=== PATIENT | male | born 1975 | race Caucasian/White ===

== ENCOUNTER 2021-11-22 18:50 | Emergency (ER) | payer OTHER ==
[~2021-11-22] VITALS: Ht 175.3 cm; Wt 90.7 kg
[~2021-11-22 18:50] MED LIST: PAIN MEDS
--- NOTE | 2021-11-22 19:50 | NUR ---
PT AMBULATED TO BED #1
[2021-11-22 19:53] VITALS: BP 144/63
--- NOTE | 2021-11-22 20:01 | NUR ---
46 YO M BIB SELF WITH C/C OF 8/10 LOWER ABD PAIN X4DAYS. PT STATES PAIN HAS INCREASED IN THE PAST FEW DAYS CAUSING BILAT HIPS TO HURT. REPORTS CONSTIPATION. DENIES N/V. STATES HE TOOK A LAXATIVE THIS AM WITH NO RELIEF. HX;HTN RX:NONCOMPLIANT NKA
[2021-11-22] MEDS: MAGNESIUM CITRATE 300 ML BTL PO ONE (21:35)
[2021-11-22 21:45] VITALS: BP 144/63
--- NOTE | 2021-11-22 21:45 | NUR ---
Patient discharged with v/s stable. Written and verbal after care instructions given and explained. Patient verbalized understanding. Ambulatory with steady gait. All questions addressed prior to discharge. Advised to follow up with PMD.
== END 2021-11-22 21:45 | disposition home or self-care (01) ==
LOC: MED 18:50
DX: R10.30 Lower abdominal pain, unspecified (principal)
CPT/HCPCS: 74018; 81002; 99283

== ENCOUNTER 2022-09-16 12:46 | Emergency (ER) | payer OTHER ==
[~2022-09-16] VITALS: Ht 172.7 cm; Wt 90.7 kg
[2022-09-16 12:49] VITALS: BP 138/85; PULSE 74; RESP 20; TEMP 98; O2SAT 100
[2022-09-16] MEDS ORDERED: LIDOCAINE 1% 500 MG/ 50 ML VIAL INJ ONE (13:15)
[2022-09-16] MEDS ORDERED: MUPI2CRE22 TP (13:48)
[2022-09-16] MEDS ORDERED: LIDOCAINE MPF 1% 0 ML ONE (13:49)
[2022-09-16] MEDS ORDERED: IBUP-2213 PO (13:49)
[2022-09-16] MEDS ORDERED: LIDOCAINE MPF 1% 5 ML ONE (13:51)
[2022-09-16] MEDS ORDERED: LIDOCAINE MPF 1% 10 MG/ML VIAL INJ ONE (13:55)
[2022-09-16 13:58] VITALS: BP 138/85; PULSE 74; RESP 20; TEMP 98; O2SAT 100
--- NOTE | 2022-09-16 13:58 | NUR ---
Patient discharged with v/s stable. Written and verbal after care instructions given and explained. Patient alert, oriented and verbalized understanding of instructions. Ambulatory with steady gait. All questions addressed prior to discharge. ID band removed. Patient advised to follow up with PMD. Rx of IBUPROFEN, MUPIROCIN (SENT) given. Patient educated on indication of medication including possible reaction and side effects. Opportunity to ask questions provided and answered.
[2022-09-16] MEDS ORDERED: BACITRACIN OINT 500 UNITS/GM PKT TP ONE ×2 (14:00)
== END 2022-09-16 13:58 | disposition home or self-care (01) ==
LOC: MED 12:46
DX: L03.012 Cellulitis of left finger (principal); I10 Essential (primary) hypertension
CPT/HCPCS: 10060; 99283; J2001

== ENCOUNTER 2023-03-25 05:14 | Emergency (ER) | payer OTHER ==
[~2023-03-25] VITALS: Ht 172.7 cm; Wt 90.7 kg
[~2023-03-25 05:14] MED LIST changes: +IBUP-2213 PO; +MUPI2CRE22 TP
[2023-03-25 05:16] VITALS: BP 127/82; PULSE 67; RESP 17; TEMP 97.9; O2SAT 99
[2023-03-25] MEDS ORDERED: FAMOTIDINE 20 MG TAB PO ONE (06:20)
[2023-03-25 06:43] LABS: APPEARANCE,URINE CLEAR (CLEAR); BILIRUBIN,URINE NEGATIVE (NEGATIVE); BLOOD, URINE NEGATIVE (NEGATIVE); COLOR,URINE YELLOW (YELLOW); LEUKOCYTE ESTERASE ,URINE NEGATIVE (NEGATIVE); NITRITE, URINE NEGATIVE (NEGATIVE); PH,URINE 6.5 (5.0-9.0); PROTEIN,URINE NEGATIVE (NEGATIVE); UGLUCOSE NEGATIVE (NEGATIVE); UROBILINOGEN,URINE 0.2 EU/dL (0.2 - 1)
[2023-03-25 07:13] LABS: HEMOGLOBIN 15.4 g/dL (12.0-18.0); MEAN CORPUSCULAR HGB CONC 35 g/dL (33-37)
[2023-03-25 07:36] LABS: ANION GAP 13.7 (8-16); CALCIUM 9.2 mg/dL (8.5-10.1); CARBON DIOXIDE 26.5 mmol/L (21-32); POTASSIUM 4.2 mmol/L (3.5-5.1)
[2023-03-25 07:40] LABS: ALBUMIN 3.9 g/dL (3.4-5.0); BILIRUBIN,DIRECT 0.1 mg/dL (0.0-0.3); TOTAL BILIRUBIN 0.7 mg/dL (0.0-1.0); TOTAL PROTEIN, SERUM 8.7 g/dL (6.4-8.2)
[2023-03-25 07:45] LABS: BASOPHILS % (AUTO) 0.3 % (0.0-2.0); EOSINOPHILS # (AUTO) 0.1 K/uL (0-0.4); EOSINOPHILS % (AUTO) 0.8 % (0.0-4.0); HEMATOCRIT 43.9 % (36-52); LYMPHOCYTES # (AUTO) 2.2 K/uL (2.0-11.5); LYMPHOCYTES % (AUTO) 27.3 % (20.5-51.1); MEAN CORPUSCULAR HEMOGLOBIN 30 pg (27-31); MONOCYTES # (AUTO) 0.4 K/uL (0.8-1.0); NEUTROPHILS # (AUTO) 5.3 K/uL (1.8-7.7); NEUTROPHILS % (AUTO) 66.6 % (42.2-75.2); PLATELET COUNT (AUTO) 218 K/uL (140-450); RED BLOOD CELL COUNT(AUTO) 5.16 MIL/uL (4.20-6.10); RED CELL DISTRIBUTION WIDTH 13.4 % (11.6-13.7); WHITE BLOOD COUNT (AUTO) 7.9 K/uL (4.8-10.8)
== END 2023-03-25 08:11 | disposition home or self-care (01) ==
LOC: MED 05:14
DX: K29.70 Gastritis, unspecified, without bleeding (principal); Z79.899 Other long term (current) drug therapy
CPT/HCPCS: 36415; 80048; 80076; 81003; 83690; 85025; 99283

== ENCOUNTER 2023-07-30 08:34 | Emergency (ER) | payer OTHER ==
[~2023-07-30] VITALS: Ht 175.3 cm; Wt 89.4 kg
[2023-07-30 08:43] VITALS: BP 126/85; PULSE 116; RESP 18; TEMP 98.8; O2SAT 97
[2023-07-30] MEDS: NACL 0.9% 1,000 ML IV ONE (10:19)
[2023-07-30] MEDS: PANTOPRAZOLE 40 MG INJ VIAL IVP ONE (10:20)
[2023-07-30] MEDS: ONDANSETRON 4 MG/2 ML VIAL IVP ONE (10:20)
[2023-07-30 10:25] VITALS: TEMP 98.8
[2023-07-30] MEDS ORDERED: FAMO-90 PO (11:00)
[2023-07-30] MEDS ORDERED: ONDA-188 SL (11:00)
[2023-07-30 11:24] VITALS: BP 119/79; PULSE 98; RESP 18; O2SAT 98
== END 2023-07-30 11:24 | disposition home or self-care (01) ==
LOC: MED 08:34
DX: E86.0 Dehydration (principal); R11.2 Nausea with vomiting, unspecified; R19.7 Diarrhea, unspecified; R51.9 Headache, unspecified; I10 Essential (primary) hypertension; Z79.1 Long term (current) use of non-steroidal anti-inflammatories (NSAID); Z79.2 Long term (current) use of antibiotics; Z79.899 Other long term (current) drug therapy
CPT/HCPCS: 93005; 96361; 96374; 96375; 99284; C9113; J2405; J7030